=== PATIENT | male | born 1965 | race Hispanic/Latino ===

== ENCOUNTER 2019-04-13 | Emergency (ER) | payer OTHER ==
[2019-04-13 01:30] LABS: ALBUMIN 4.6 g/dL (3.2-5.0); ALKALINE PHOSPHATASE 70 u/l (38-126); AMYLASE 67 u/l (30-110); ANION GAP 14 (6-22 (CALC)); BILIRUBIN, TOTAL 0.4 mg/dL (0.0-1.4); BUN 21 mg/dL (9-20); BUN/CREATININE RATIO 22 (12-20 (CALC)); CARBON DIOXIDE 33 mmol/l (22-30); CHLORIDE 99 mmol/l (95-108); GFR > 60 ML/MIN (>=60 (CALC)); GFR FOR AFR.AMER. > 60 ML/MIN (>=60 (CALC)); LIPASE 98 u/l (23-300); SGOT/AST 28 u/l (17-59); SODIUM 142 mmol/l (137-146); TOTAL PROTEIN 8.5 g/dL (6.3-8.2)
[2019-04-13 01:33] LABS: HEMATOCRIT 52.8 % (39.0-50.0); HEMOGLOBIN 16.6 g/dl (14.0-18.0); IMMATURE GRANULOCYTES 1.6 % (0.0-5.0); MEAN CELL VOLUME 90.1 fL CALC (80.0-100.0); MEAN CORPUSCULAR HGB 28.3 pG CALC (26.0-32.0); MEAN CORPUSCULAR HGB CONC 31.4 g/L CALC (32.0-36.0); NEUT# 4.81 thou/uL (1.82-7.42); RED BLOOD COUNT 5.86 mill/uL (4.70-6.10); RED CELL DISTRI WIDTH 14.6 % (11.5-15.5)
[2019-04-13 03:46] LABS: URINE BILIRUBIN - DIPSTICK NEGATIVE (NEGATIVE); URINE BLOOD DIPSTICK NEGATIVE (NEGATIVE); URINE COLOR YELLOW; URINE GLUCOSE - DIPSTICK NEGATIVE (NEGATIVE); URINE KETONE NEGATIVE (NEGATIVE); URINE LEUK ESTERASE NEGATIVE (NEGATIVE); URINE NITRITE - DIPSTICK NEGATIVE (Negative); URINE PROTEIN - DIPSTICK NEGATIVE (NEG-TRACE); URINE UROBILINOGEN - DIPSTICK 0.2 E.U./dL (0.2)
[2019-04-13] MEDS ORDERED: LISINOPRIL10 MG PO (07:02)
[2019-04-13] MEDS ORDERED: CHILD ADVI100 MG/51 VT (07:05)
[2019-04-13] MEDS ORDERED: JEVITY 1.5 CAL VT ×2 (07:06→07:09)
[2019-04-13] MEDS ORDERED: [UNRECOGNIZED DRUG - OTHER] VT (07:08)
== END 2019-04-13 07:10 | disposition short-term general hospital (02) | DRG 394 ==
PROVIDERS: Emergency Medicine
DX: K94.22 Gastrostomy infection (principal); R04.2 Hemoptysis; E87.2 Acidosis; K22.2 Esophageal obstruction; I10 Essential (primary) hypertension; Z92.3 Personal history of irradiation; Z92.21 Personal history of antineoplastic chemotherapy; Y83.3 Surgical operation with formation of external stoma as the cause of abnormal reaction of the patient, or of later complication, without mention of misadventure at the time of the procedure; Z85.01 Personal history of malignant neoplasm of esophagus
CPT/HCPCS: Q9967; S0164